=== PATIENT | female | born 1975 | race Caucasian/White ===

== ENCOUNTER 2021-07-15 17:59 | Emergency (ER) | payer MEDICARE, OTHER ==
[~2021-07-15] VITALS: Ht 167.6 cm; Wt 79.4 kg
[~2021-07-15 17:59] MED LIST: TOPAMAX50 MG PO
[2021-07-15] MEDS ORDERED: OMEPRAZOLE20 MG PO (18:11)
[2021-07-15] MEDS ORDERED: ACETAMINOPHEN500 MG PO (18:11)
[2021-07-15] MEDS ORDERED: DOCUSATE SODIU100 MG PO (18:11)
[2021-07-15] MEDS ORDERED: ESTRADIOL0.5 MG PO (18:11)
[2021-07-15] MEDS ORDERED: LAMOTRIGINE200 MG PO (18:11)
[2021-07-15] MEDS ORDERED: TOPIRAMATE200 MG PO (18:11)
[2021-07-15] MEDS ORDERED: RENA-VITE RX T1 EACH PO (18:12)
[2021-07-15] MEDS ORDERED: IBUPROFEN400 MG PO (18:12)
[2021-07-15] MEDS ORDERED: [UNRECOGNIZED DRUG - CODE] DT (18:12)
== END 2021-07-15 18:28 | disposition home or self-care (01) ==
LOC: ED 17:59
DX: T21.21XA Burn of second degree of chest wall, initial encounter (principal); K21.9 Gastro-esophageal reflux disease without esophagitis; Z88.5 Allergy status to narcotic agent; Z79.899 Other long term (current) drug therapy; X10.0XXA Contact with hot drinks, initial encounter
CPT/HCPCS: 16000; 99283-25; A9270